=== PATIENT | female | born 1975 | race Caucasian/White ===

== ENCOUNTER → 2017-08-09 | Outpatient (CLI) | payer BC | END | disposition home or self-care (01) | LOC: EPLAB 09:50 | PROVIDERS: ATTEND Internal Medicine | DX: C52 Malignant neoplasm of vagina (principal) | CPT/HCPCS: 86850; 86900; 86901; 86920 ==

== ENCOUNTER 2017-08-11 06:12 | Inpatient (IN) | payer BC ==
[2017-08-11] VITALS (37 sets, daily range): BP systolic 75–120; BP diastolic 43–71; PULSE 66–94; RESP 9–24; Ht 154.9 cm; Wt 61.6 kg
[~2017-08-11] VITALS: Ht 154.9 cm; Wt 61.6 kg
[~2017-08-11 06:12] MED LIST: CEFAZOLIN 2 GM/50 ML (PMX) 50 ML IVPB SCH; D5-NS + KCL 20 MEQ 1,000 ML IV SCH; Metronidazole 500 MG in NS 100 ML IVPB SCH
[2017-08-11] MEDS ORDERED: THROMBIN 5000 UNIT VIAL ONE (06:56)
[2017-08-11] MEDS ORDERED: METHYLENE BLUE 1% 10 ML INJ ONE (06:57)
[2017-08-11] MEDS ORDERED: MIDAZOLAM 1 MG/ML 2 ML INJ ONE (07:42)
[2017-08-11] MEDS ORDERED: morphine SULFATE/PF (10 MG/10 ML) INJ ONE (07:42)
--- NOTE | 2017-08-11 07:50 | HPN ---
Date/Time of Note Date/Time of Note DATE: 08/11/17 TIME: 07:49 Interval H&P Admission Note Pt. seen H&P reviewed: No system changes DELMA LUNDBERG MD Aug 11, 2017 07:50
[2017-08-11] MEDS ORDERED: PHENYLephrine (100 MCG/ML) 5ML SYG ONE (08:12)
[2017-08-11] MEDS ORDERED: FENTAnyl 50 MCG/ML VIAL ONE ×2 (09:12→11:44)
[2017-08-11] MEDS ORDERED: PROPOFOL 40 ML ONE (10:56)
[2017-08-11] MEDS ORDERED: LIDOCAINE 2% (SDV) 5 ML INJ ONE (10:56)
[2017-08-11] MEDS ORDERED: SUCCINYLCHOLINE CHLORIDE 100 MG/5 ML SYG IV ONE (10:56)
[2017-08-11] MEDS ORDERED: SUGAMMADEX SODIUM 200 MG/2 ML VIAL IV ONE (10:56)
[2017-08-11] MEDS ORDERED: ROCURONIUM 50 MG INJ ONE (10:56)
[2017-08-11] MEDS ORDERED: DIPHENHYDRAMINE 50 MG INJ IV PRN (12:00)
[2017-08-11] MEDS ORDERED: morphine 2 MG INJ IV PRN (12:00)
[2017-08-11] MEDS ORDERED: OXYCODONE/ACETAMINOPHEN (5/325) TAB PO PRN (12:00)
[2017-08-11] MEDS ORDERED: DIPHENHYDRAMINE 25 MG CAP PO PRN (12:00)
[2017-08-11] MEDS ORDERED: CEFAZOLIN 1 GM in SOD CHLORIDE 0.9% 100 ML IVPB SCH (12:00)
[2017-08-11] MEDS ORDERED: ONDANSETRON 4 MG INJ IV PRN ×2 (12:00→16:30)
[2017-08-11] MEDS ORDERED: ALBUTEROL 0.083% (NEB) 2.5 MG/3 ML AMP HHN PRN (12:00)
[2017-08-11] MEDS ORDERED: FENTAnyl 50 MCG/ML VIAL IV PRN ×3 (12:00)
[2017-08-11] MEDS ORDERED: MEPERIDINE 25 MG INJ IV PRN (12:00)
[2017-08-11] MEDS ORDERED: HYDROmorphONE (0.2 MG/ML) 10ML SYG IV PRN ×2 (12:00)
[2017-08-11] MEDS ORDERED: METOCLOPRAMIDE 10 MG INJ IV PRN (12:00)
[2017-08-11] MEDS: HYDROmorphONE (0.2 MG/ML) 10ML SYG IV PRN ×3 (12:11→12:37)
--- NOTE | 2017-08-11 12:18 | OPPN ---
Date/Time of Note Date/Time of Note DATE: 08/11/17 TIME: 11:57 Operative Report Preoperative Diagnosis cervical cancer st II Postoperative Diagnosis same with pelvic adhesions ureteral stricture and probable endometriosis Operation/Procedure Performed Pelvic and aortic LND, extensive enterolysis, left ureteral dissection, repair left common iliac / hypogastric vein Anesthesia Type: other Estimated blood loss: other Transfusion Required: yes Specimens multiple Grafts/Implants: none Complications: no DELMA LUNDBERG MD Aug 11, 2017 12:16
[2017-08-11 12:50] LABS: BASOPHIL # 0.1 10^3/ul (0.0-0.1); BASOPHILS % 0.2 % (0.0-2.0); HEMATOCRIT 34.4 % (37.0-47.0); HEMOGLOBIN 11.2 g/dl (12.0-16.0); LYMPHOCYTES # 1.5 10^3/ul (0.8-2.9); LYMPHOCYTES % 6.7 % (15.0-51.0); MEAN CORPUSCULAR HEMOGLOBIN 28.5 pg (29.0-33.0); MEAN CORPUSCULAR HGB CONC 32.6 g/dl (32.0-37.0); MEAN CORPUSCULAR VOLUME 87.5 fl (82.0-101.0); MEAN PLATELET VOLUME 10.3 fl (7.4-10.4); MONOCYTE # 1.1 10^3/ul (0.3-0.9); MONOCYTES % 4.8 % (0.0-11.0); NEUTROPHILS % 87.4 % (39.0-77.0); PLATELET COUNT 255 10^3/UL (140-415); RED BLOOD COUNT 3.93 10^6/ul (4.20-5.40); RED CELL DISTRIBUTION WIDTH 13.1 % (11.5-14.5); WHITE BLOOD COUNT 22.6 10^3/ul (4.8-10.8)
[2017-08-11] MEDS ORDERED: POTASSIUM CHLORIDE 20 MEQ in LACTATED RINGER'S 1,000 ML IV SCH (13:00)
[2017-08-11 13:11] LABS: CALCIUM 7.2 mg/dl (8.4-10.2); CREATININE 0.58 mg/dl (0.44-1.00); POTASSIUM 3.6 mmol/L (3.5-5.1)
[2017-08-11] MEDS: CEFAZOLIN 1 GM/50 ML (PMX) 50 ML IVPB SCH ×2 (13:51→21:28)
[2017-08-11] MEDS: metroNIDAZOLE 500 MG/NS (PMX) 100 ML IVPB SCH ×2 (14:33→21:28)
[2017-08-11] MEDS: POTASSIUM CHLORIDE 20 MEQ in LACTATED RINGER'S 1,000 ML IV SCH (15:39)
[2017-08-11 16:38] LABS: INR 1.07; PROTIME 13.9 Sec (12.2-14.2); PT RATIO 1.1
[2017-08-11] MEDS ORDERED: ACETAMINOPHEN 1000MG/100ML IV 100 ML IVPB PRN (18:00)
[2017-08-11] MEDS: morphine 2 MG INJ IV PRN ×2 (18:08→23:48)
--- NOTE | 2017-08-11 20:32 | PN ---
Date/Time of Note Date/Time of Note DATE: 08/11/17 TIME: 20:32 Assessment/Plan Lines/Catheters IV Catheter Type (from Nrsg): Peripheral IV Urinary Cath still in place: Yes Exam/Review of Systems Vital Signs Vitals Vital Signs Date Time Temp Pulse Resp B/P Pulse Ox O2 Delivery O2 Flow Rate FiO2 08/11/17 19:00 84 12 93/52 98 08/11/17 16:00 97.6 08/11/17 12:38 Nasal Cannula 2.0 Results Result Diagram: 08/11/17 1232 08/11/17 1232 Results 24 hrs Laboratory Tests Test 08/11/17 12:32 08/11/17 16:05 White Blood Count 22.6 H Red Blood Count 3.93 L Hemoglobin 11.2 L Hematocrit 34.4 L Mean Corpuscular Volume 87.5 Mean Corpuscular Hemoglobin 28.5 L Mean Corpuscular Hemoglobin Concent 32.6 Red Cell Distribution Width 13.1 Platelet Count 255 Mean Platelet Volume 10.3 Neutrophils % 87.4 H Lymphocytes % 6.7 L Monocytes % 4.8 Eosinophils % 0.0 Basophils % 0.2 Nucleated Red Blood Cells % 0.0 Neutrophils # (Manual) 19.8 H Lymphocytes # 1.5 Monocytes # 1.1 H Eosinophils # 0.0 Basophils # 0.1 Nucleated Red Blood Cells # 0.0 CBC Results Faxed/Phoned Sodium Level 135 Potassium Level 3.6 Chloride Level 111 H Carbon Dioxide Level 23 Anion Gap 5 L Blood Urea Nitrogen 6 L Creatinine 0.58 Glucose Level 127 Calcium Level 7.2 L Prothrombin Time 13.9 Prothrombin Time Ratio 1.1 INR International Normalized Ratio 1.07 Medications Medications Current Medications Metronidazole (Flagyl 500 Mg (Pmx)) 100 ml @ 100 mls/hr Q8 IVPB Last administered on 08/11/17t 14:33; Admin Dose 100 MLS/HR; Start 08/11/17 at 14:00 Acetaminophen/ Hydrocodone Bitart ([place] (5/325)) 1 tab Q6H PRN PO PAIN LEVEL 6 -10; Start 08/11/17 at 12:00 Diphenhydramine HCl (Benadryl) 25 mg Q6H PRN PO ITCHING; Start 08/11/17 at 12: 00 Famotidine (Pepcid Iv) 20 mg Q12 IV ; Start 08/11/17 at 21:00 Enoxaparin Sodium 40 mg 40 mg DAILY@07 SC ; Start 08/12/17 at 07:00 Cefazolin Sodium 50 ml @ 100 mls/hr Q8 IVPB Last administered on 08/11/17 13: 51; Admin Dose 100 MLS/HR; Start 08/11/17 at 14:00; Stop 08/12/17 at 06:29 Potassium Chloride/Lactated Ringer's (KCl/Lr) 1,010 ml @ 125 mls/hr Q8H5M IV Last administered on 08/11/17 15:39; Admin Dose 100 MLS/HR; Start 08/11/17 at 15:30 Ondansetron HCl 4 mg 4 mg Q6H PRN IV NAUSEA AND/OR VOMITING Last administered on 08/11/17 16:15; Admin Dose 4 MG; Start 08/11/17 at 16:30 Acetaminophen (Ofirmev 1000mg/ 100ml Iv) 100 ml @ 400 mls/hr Q6H PRN IVPB PAIN LEVEL 1-3; Start 08/11/17 at 18:00 Morphine Sulfate (morphine) 2 mg Q2H PRN IV PAIN LEVEL 7-10 Last administered on 08/11/17 18:08; Admin Dose 2 MG; Start 08/11/17 at 18:00 SUNDAR NICHOLE Aug 11, 2017 20:32
--- NOTE | 2017-08-11 20:45 | HP ---
DATE OF ADMISSION: 08/11/2017 CHIEF COMPLAINT AND HISTORY OF PRESENT ILLNESS: Patient is a 41- year-old female with history of vaginal bleed and biopsy proven squamous cell cancer. CT of the abdomen and pelvis apparently had no metastatic disease. Patient was seen by Dr. Johns as an outpatient, and was referred to him by Dr. 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 Patient was brought into hospital today and was taken to OR. Patient underwent pelvic and aortic lymph node dissection, extensive enterolysis, left ureter dissection and repair of left common iliac and hypogastric vein. During surgery, patient was noted to have pelvic adhesions, ureteral stricture, and probable endometriosis. Patient is being admitted in ICU for close monitoring. Patient denies any chest pain and is breathing comfortably. Patient's vital signs have remained stable since surgery. Denies any chest pain, no shortness of breath. No leg pain or leg edema. No numbness, tingling in any extremity. Patient remains awake and responsive. Other than postoperative pain, rest of review of systems unremarkable. PAST SURGICAL HISTORY: None. ALLERGIES: NONE. SOCIAL HISTORY: No smoking. No alcohol. FAMILY HISTORY: Noncontributory. PHYSICAL EXAMINATION: GENERAL: Patient conscious, awake, alert. VITAL SIGNS: Temperature 97.6, pulse 80, respiration 20, blood pressure 101/58, O2 sat 100% on room air. HEENT: No eye discharge, redness. Extraocular movement intact. Oropharynx clear. NECK: No mass. CHEST: Fairly clear. CVS: S1, S2 normal. No murmur. ABDOMEN: Patient is status post surgery. EXTREMITIES: No leg edema. Pedal pulses palpable. SKIN: Without acute rash. NEUROLOGIC: Patient is awake, alert, follows simple commands. LABORATORY DATA: Urine test negative. Preop lab reveals sodium 141, potassium 4.2, BUN 8, creatinine 0.7. Liver enzymes normal. PTT 28. WBC 7.8, hemoglobin 13.2, INR 1, PTT 10.8. Postoperatively, patient's CBC revealed WBC 22.6, hemoglobin 9.2. Sodium 135, potassium 3.6, BUN 6, creatinine 0.5. IMPRESSION: 1. Cervical cancer stage II with pelvic adhesion, ureteral stricture and probable endometriosis, status post pelvic and aortic lymph node dissection, extensive enterolysis, left ureteral dissection, repair of left common iliac/hypogastric vein. PLAN: Patient admitted in ICU, will be started on clear liquid diet and IV fluids. Postop IV antibiotic as per protocol. Patient will be also started on IV Tylenol and [place] for pain control. Patient will also receive Lovenox for DVT prophylaxis. Patient will have followup labs in the morning. Further recommendation depending on hospital course, and recommendations of Dr. Johns. Dictated By: Troy Cm MD /beau/jonelle /Document#: [id number] EARNEST
[2017-08-11] MEDS: FAMOTIDINE 20 MG INJ IV SCH (21:25)
[2017-08-12] VITALS (41 sets, daily range): BP systolic 84–107; BP diastolic 48–72; PULSE 81–108; RESP 15–22
[2017-08-12] MEDS: POTASSIUM CHLORIDE 20 MEQ in LACTATED RINGER'S 1,000 ML IV SCH ×3 (03:09→14:08)
[2017-08-12] MEDS: CEFAZOLIN 1 GM/50 ML (PMX) 50 ML IVPB SCH (05:37)
[2017-08-12] MEDS: metroNIDAZOLE 500 MG/NS (PMX) 100 ML IVPB SCH ×3 (05:38→21:04)
[2017-08-12 05:53] LABS: BASOPHILS % 0.4 % (0.0-2.0); EOSINOPHILS # 0.1 10^3/ul (0.0-0.5); EOSINOPHILS % 0.6 % (0.0-7.0); HEMATOCRIT 31.9 % (37.0-47.0); HEMOGLOBIN 10.4 g/dl (12.0-16.0); LYMPHOCYTES # 1.4 10^3/ul (0.8-2.9); LYMPHOCYTES % 13.6 % (15.0-51.0); MEAN CORPUSCULAR HEMOGLOBIN 27.8 pg (29.0-33.0); MEAN CORPUSCULAR HGB CONC 32.6 g/dl (32.0-37.0); MEAN CORPUSCULAR VOLUME 85.3 fl (82.0-101.0); MEAN PLATELET VOLUME 10.4 fl (7.4-10.4); MONOCYTE # 0.8 10^3/ul (0.3-0.9); MONOCYTES % 7.6 % (0.0-11.0); NEUTROPHILS % 77.1 % (39.0-77.0); PLATELET COUNT 197 10^3/UL (140-415); RED BLOOD COUNT 3.74 10^6/ul (4.20-5.40); RED CELL DISTRIBUTION WIDTH 13.5 % (11.5-14.5); WHITE BLOOD COUNT 10.5 10^3/ul (4.8-10.8)
[2017-08-12 06:05] LABS: INR 1.23; PROTIME 15.6 Sec (12.2-14.2); PT RATIO 1.2
[2017-08-12] MEDS: morphine 2 MG INJ IV PRN ×3 (06:23→22:37)
[2017-08-12] MEDS: ENOXAPARIN 40 MG/0.4 ML SYG SC SCH (06:24)
[2017-08-12 06:27] LABS: ALBUMIN 2.7 g/dl (3.3-4.9); BILIRUBIN,INDIRECT 0.8 mg/dl (0-1.1); BILIRUBIN,TOTAL 0.8 mg/dl (0.2-1.3); CREATININE 0.64 mg/dl (0.44-1.00); TOTAL PROTEIN 5.4 g/dl (6.1-8.1)
[2017-08-12] MEDS: FAMOTIDINE 20 MG INJ IV SCH (08:05)
--- NOTE | 2017-08-12 13:08 | PN ---
Date/Time of Note Date/Time of Note DATE: 08/12/17 TIME: 13:05 Assessment/Plan VTE Prophylaxis VTE Prophylaxis Intervention: SCD's Lines/Catheters IV Catheter Type (from Nrs): A Line Urinary Cath still in place: Yes Reason Cath still needed: urinary retention Assessment/Plan Chief Complaint/Hosp Course vaginal cancer Problems: Assessment/Plan A- doing adequately P- transfer to 4w Subjective 24 Hr Interval Summary Free Text/Dictation some abd discomfort but no other discomfort and not OOB Exam/Review of Systems Vital Signs Vitals Vital Signs Date Time Temp Pulse Resp B/P Pulse Ox O2 Delivery O2 Flow Rate FiO2 08/12/17 12:00 95 08/12/17 12:00 98.1 21 94/64 98 Room Air 08/11/17 12:38 2.0 Intake and Output 08/11/17 08/11/17 08/12/17 15:00 23:00 07:00 Intake Total 2500 ml 1020 ml 910 ml Output Total 1375 ml 1100 ml 1110 ml Balance 1125 ml -80 ml -200 ml Exam Resp- clear CVS- NSR Abd- soft, minimally tender and clean Ext- NT no edema and warm with pulse bilateral Results Result Diagram: 08/12/17 0530 08/12/17 0530 Results 24 hrs Laboratory Tests Test 08/11/17 16:05 08/12/17 05:30 08/12/17 05:36 Prothrombin Time 13.9 15.6 H Prothrombin Time Ratio 1.1 1.2 INR International Normalized Ratio 1.07 1.23 White Blood Count 10.5 # Red Blood Count 3.74 L Hemoglobin 10.4 L Hematocrit 31.9 L Mean Corpuscular Volume 85.3 Mean Corpuscular Hemoglobin 27.8 L Mean Corpuscular Hemoglobin Concent 32.6 Red Cell Distribution Width 13.5 Platelet Count 197 # Mean Platelet Volume 10.4 Neutrophils % 77.1 H Lymphocytes % 13.6 L Monocytes % 7.6 Eosinophils % 0.6 Basophils % 0.4 Nucleated Red Blood Cells % 0.0 Neutrophils # (Manual) 8.1 H Lymphocytes # 1.4 Monocytes # 0.8 Eosinophils # 0.1 Basophils # 0.0 Nucleated Red Blood Cells # 0.0 Sodium Level 137 Potassium Level 4.0 Chloride Level 108 Carbon Dioxide Level 26 Anion Gap 7 L Blood Urea Nitrogen 5 L Creatinine 0.64 Glucose Level 96 Calcium Level 8.0 L Total Bilirubin 0.8 Direct Bilirubin 0.00 Indirect Bilirubin 0.8 Aspartate Amino Transf (AST/SGOT) 17 Alanine Aminotransferase (ALT/SGPT) 26 Alkaline Phosphatase 43 Total Protein 5.4 L Albumin 2.7 L Globulin 2.70 Albumin/Globulin Ratio 1.00 Lab Scanned Report REFERENCE LAB Medications Medications Current Medications Metronidazole (Flagyl 500 Mg (Pmx)) 100 ml @ 100 mls/hr Q8 IVPB Last administered on 08/12/17 05:38; Admin Dose 100 MLS/HR; Start 08/11/17 at 14:00 Acetaminophen/ Hydrocodone Bitart ([place] (5/325)) 1 tab Q6H PRN PO PAIN LEVEL 6 -10; Start 08/11/17 at 12:00 Diphenhydramine HCl (Benadryl) 25 mg Q6H PRN PO ITCHING; Start 08/11/17 at 12: 00 Enoxaparin Sodium 40 mg 40 mg DAILY@07 SC Last administered on 08/12/17 06:24 ; Admin Dose 40 MG; Start 08/12/17 at 07:00 Potassium Chloride/Lactated Ringer's (KCl/Lr) 1,010 ml @ 125 mls/hr Q8H5M IV Last administered on 08/12/17 03:09; Admin Dose 125 MLS/HR; Start 08/11/17 at 15:30 Ondansetron HCl 4 mg 4 mg Q6H PRN IV NAUSEA AND/OR VOMITING Last administered on 08/11/17 16:15; Admin Dose 4 MG; Start 08/11/17 at 16:30 Acetaminophen (Ofirmev 1000mg/ 100ml Iv) 100 ml @ 400 mls/hr Q6H PRN IVPB PAIN LEVEL 1-3; Start 08/11/17 at 18:00 Morphine Sulfate (morphine) 2 mg Q2H PRN IV PAIN LEVEL 7-10 Last administered on 08/12/17 06:23; Admin Dose 2 MG; Start 08/11/17 at 18:00 Famotidine (Pepcid) 20 mg Q12 PO ; Start 08/12/17 at 21:00 DELMA LUNDBERG MD Aug 12, 2017 13:08
[2017-08-12] MEDS: FAMOTIDINE 20 MG TAB PO SCH (20:56)
[2017-08-13] VITALS (19 sets, daily range): BP systolic 92–114; BP diastolic 52–68; PULSE 79–97; RESP 14–20
[2017-08-13] MEDS: HYDROCODONE/APAP (5/325) TAB PO PRN ×2 (02:15→20:34)
[2017-08-13 05:50] LABS: BASOPHIL # 0.1 10^3/ul (0.0-0.1); BASOPHILS % 0.7 % (0.0-2.0); EOSINOPHILS # 0.1 10^3/ul (0.0-0.5); HEMATOCRIT 31.3 % (37.0-47.0); HEMOGLOBIN 10.4 g/dl (12.0-16.0); LYMPHOCYTES # 1.6 10^3/ul (0.8-2.9); LYMPHOCYTES % 20.2 % (15.0-51.0); MEAN CORPUSCULAR HGB CONC 33.2 g/dl (32.0-37.0); MEAN CORPUSCULAR VOLUME 87.2 fl (82.0-101.0); MEAN PLATELET VOLUME 10.6 fl (7.4-10.4); MONOCYTE # 0.8 10^3/ul (0.3-0.9); MONOCYTES % 9.8 % (0.0-11.0); NEUTROPHIL # 5.4 10^3/ul (1.6-7.5); NEUTROPHILS % 67.7 % (39.0-77.0); PLATELET COUNT 181 10^3/UL (140-415); RED BLOOD COUNT 3.59 10^6/ul (4.20-5.40); RED CELL DISTRIBUTION WIDTH 13.3 % (11.5-14.5); WHITE BLOOD COUNT 8.1 10^3/ul (4.8-10.8)
[2017-08-13] MEDS: POTASSIUM CHLORIDE 20 MEQ in LACTATED RINGER'S 1,000 ML IV SCH ×3 (06:17→22:11)
[2017-08-13] MEDS: metroNIDAZOLE 500 MG/NS (PMX) 100 ML IVPB SCH (06:18)
[2017-08-13] MEDS: ENOXAPARIN 40 MG/0.4 ML SYG SC SCH (06:21)
[2017-08-13 06:46] LABS: CALCIUM 8.1 mg/dl (8.4-10.2); CREATININE 0.59 mg/dl (0.44-1.00); POTASSIUM 3.7 mmol/L (3.5-5.1)
[2017-08-13] MEDS: FAMOTIDINE 20 MG TAB PO SCH ×2 (09:33→22:02)
[2017-08-13] MEDS: metroNIDAZOLE 500 MG TAB PO SCH ×2 (13:17→22:01)
--- NOTE | 2017-08-13 15:57 | PN ---
Date/Time of Note Date/Time of Note DATE: 08/13/17 TIME: 15:47 Assessment/Plan VTE Prophylaxis VTE Prophylaxis Intervention: SCD's Lines/Catheters IV Catheter Type (from Nrsg): [place] Urinary Cath still in place: Yes Assessment/Plan Assessment/Plan 1. Cervical cancer stage II with pelvic adhesion, uretera stricture and probable endometriosis, status post pelvic and aortic lymph node dissection, extensive enterolysis, left ureteral dissection, repair of left common iliac/hypogastric vein. - clear liquid diet and IV fluids. - Po antibiotic as per protocol. - Tylenol and [place] for pain control. Lovenox for DVT prophylaxis. Further recommendation depending on hospital course, and recommendations of Dr. Johns.- Dw Dr Cm Subjective 24 Hr Interval Summary Free Text/Dictation Denies any vaginal bleeding, at bed side- all Qs answered. dw staff Respiratory: no complaints Cardiovascular: no complaints Gastrointestinal: no complaints Genitourinary: no complaints Musculoskeletal: no complaints Skin: no complaints Neurologic: no complaints Exam/Review of Systems Vital Signs Vitals Vital Signs Date Time Temp Pulse Resp B/P Pulse Ox O2 Delivery O2 Flow Rate FiO2 08/13/17 15:32 97.7 82 18 114/60 97 08/13/17 06:00 Room Air 08/11/17 12:38 2.0 Intake and Output 08/12/17 08/12/17 08/13/17 15:00 23:00 07:00 Intake Total 1630 ml 1240 ml 950 ml Output Total 1485 ml 1135 ml 645 ml Balance 145 ml 105 ml 305 ml Exam Constitutional: alert, oriented Respiratory: clear to auscultation, normal air movement Cardiovascular: nl pulses, regular rate and rhythm Gastrointestinal: non-tender, soft Musculoskeletal: nl extremities to inspection Extremities: normal pulses Neurological: nl mental status, nl speech Results Result Diagram: 08/13/1717 08/13/1717 Results 24 hrs Laboratory Tests Test 08/13/17 05:17 White Blood Count 8.1 # Red Blood Count 3.59 L Hemoglobin 10.4 L Hematocrit 31.3 L Mean Corpuscular Volume 87.2 Mean Corpuscular Hemoglobin 29.0 Mean Corpuscular Hemoglobin Concent 33.2 Red Cell Distribution Width 13.3 Platelet Count 181 Mean Platelet Volume 10.6 H Neutrophils % 67.7 Lymphocytes % 20.2 Monocytes % 9.8 Eosinophils % 1.0 Basophils % 0.7 Nucleated Red Blood Cells % 0.0 Neutrophils # 5.4 Lymphocytes # 1.6 Monocytes # 0.8 Eosinophils # 0.1 Basophils # 0.1 Nucleated Red Blood Cells # 0.0 Sodium Level 136 Potassium Level 3.7 Chloride Level 108 Carbon Dioxide Level 26 Anion Gap 6 L Blood Urea Nitrogen 4 L Creatinine 0.59 Glucose Level 92 Calcium Level 8.1 L Medications Medications Current Medications Acetaminophen/ Hydrocodone Bitart ([place] (5/325)) 1 tab Q6H PRN PO PAIN LEVEL 6 -10 Last administered on 08/13/17 02:15; Admin Dose 1 TAB; Start 08/11/17 at 12 :00 Diphenhydramine HCl (Benadryl) 25 mg Q6H PRN PO ITCHING; Start 08/11/17 at 12: 00 Enoxaparin Sodium 40 mg 40 mg DAILY@07 SC Last administered on 08/13/17 06:21 ; Admin Dose 40 MG; Start 08/12/17 at 07:00 Potassium Chloride/Lactated Ringer's (KCl/Lr) 1,010 ml @ 80 mls/hr [id number] IV Last administered on 08/13/17 06:17; Admin Dose 80 MLS/HR; Start 08/11/17 at 15 :30 Ondansetron HCl 4 mg 4 mg Q6H PRN IV NAUSEA AND/OR VOMITING Last administered on 08/11/17 16:15; Admin Dose 4 MG; Start 08/11/17 at 16:30 Acetaminophen (Ofirmev 1000mg/ 100ml Iv) 100 ml @ 400 mls/hr Q6H PRN IVPB PAIN LEVEL 1-3; Start 08/11/17 at 18:00 Morphine Sulfate (morphine) 2 mg Q2H PRN IV PAIN LEVEL 7-10 Last administered on 08/12/17 22:37; Admin Dose 2 MG; Start 08/11/17 at 18:00 Famotidine (Pepcid) 20 mg Q12 PO Last administered on 08/13/17 09:33; Admin Dose 20 MG; Start 08/12/17 at 21:00 Simethicone (Mylicon) 80 mg Q8H PRN PO DISTENSION/GAS/BLOATING Last administered on 08/12/17 18:03; Admin Dose 80 MG; Start 08/12/17 at 17:00 Metronidazole (Flagyl) 500 mg TID PO Last administered on 08/13/17 13:17; Admin Dose 500 MG; Start 08/13/17 at 13:00 SUNDAR NICHOLE Aug 13, 2017 15:57
[2017-08-14 01:58] VITALS: BP 100/55; RESP 18
[2017-08-14 06:04] LABS: BASOPHIL # 0.1 10^3/ul (0.0-0.1); BASOPHILS % 0.8 % (0.0-2.0); EOSINOPHILS # 0.1 10^3/ul (0.0-0.5); EOSINOPHILS % 1.5 % (0.0-7.0); HEMATOCRIT 35.1 % (37.0-47.0); HEMOGLOBIN 11.5 g/dl (12.0-16.0); LYMPHOCYTES # 1.6 10^3/ul (0.8-2.9); LYMPHOCYTES % 19.7 % (15.0-51.0); MEAN CORPUSCULAR HEMOGLOBIN 28.8 pg (29.0-33.0); MEAN CORPUSCULAR HGB CONC 32.8 g/dl (32.0-37.0); MEAN CORPUSCULAR VOLUME 87.8 fl (82.0-101.0); MEAN PLATELET VOLUME 10.5 fl (7.4-10.4); MONOCYTE # 0.7 10^3/ul (0.3-0.9); MONOCYTES % 9.3 % (0.0-11.0); NEUTROPHIL # 5.3 10^3/ul (1.6-7.5); NEUTROPHILS % 67.8 % (39.0-77.0); PLATELET COUNT 226 10^3/UL (140-415); RED CELL DISTRIBUTION WIDTH 13.4 % (11.5-14.5); WHITE BLOOD COUNT 7.9 10^3/ul (4.8-10.8)
[2017-08-14 06:28] LABS: CALCIUM 8.7 mg/dl (8.4-10.2); CREATININE 0.58 mg/dl (0.44-1.00); POTASSIUM 3.8 mmol/L (3.5-5.1)
[2017-08-14 07:00] VITALS: BP 105/64; RESP 18
[2017-08-14] MEDS: ENOXAPARIN 40 MG/0.4 ML SYG SC SCH (07:21)
[2017-08-14] MEDS: FAMOTIDINE 20 MG TAB PO SCH ×2 (08:51→21:15)
[2017-08-14] MEDS: metroNIDAZOLE 500 MG TAB PO SCH ×3 (08:51→21:15)
[2017-08-14] MEDS: POTASSIUM CHLORIDE 20 MEQ in LACTATED RINGER'S 1,000 ML IV SCH ×2 (11:53→23:53)
[2017-08-14 14:00] VITALS: BP 105/59; RESP 18
--- NOTE | 2017-08-14 16:22 | PN ---
Date/Time of Note Date/Time of Note DATE: 08/14/17 TIME: 16:20 Assessment/Plan VTE Prophylaxis VTE Prophylaxis Intervention: LMWH Lines/Catheters IV Catheter Type (from Nrs): Saline Lock Urinary Cath still in place: No Assessment/Plan Assessment/Plan 1. Cervical cancer stage II with pelvic adhesion, uretera stricture and probable endometriosis, status post pelvic and aortic lymph node dissection, extensive enterolysis, left ureteral dissection, repair of left common iliac/hypogastric vein. - clear liquid diet and IV fluids. - Po antibiotic as per protocol. - Tylenol and [place] for pain control. 2. BLE venous doppler stat - Possible iliac vein injury during sx Lovenox for DVT prophylaxis. Further recommendation depending on hospital course, and recommendations of Dr. Johns.- Dw Dr Cm Subjective 24 Hr Interval Summary Respiratory: no complaints Cardiovascular: no complaints Gastrointestinal: no complaints Genitourinary: no complaints Musculoskeletal: no complaints Skin: no complaints Exam/Review of Systems Vital Signs Vitals Vital Signs Date Time Temp Pulse Resp B/P Pulse Ox O2 Delivery O2 Flow Rate FiO2 08/14/17 14:00 98.6 87 18 105/59 96 08/13/17 15:53 Room Air 08/11/17 12:38 2.0 Intake and Output 08/13/17 08/13/17 08/14/17 15:00 23:00 07:00 Intake Total 1490 ml 780 ml Output Total 2000 ml 800 ml Balance -510 ml -20 ml Exam Constitutional: alert, oriented, well developed Respiratory: clear to auscultation, normal air movement Cardiovascular: nl pulses, regular rate and rhythm Gastrointestinal: non-tender Musculoskeletal: nl extremities to inspection Extremities: normal pulses Neurological: nl mental status, nl speech Results Result Diagram: 08/14/17 0500 08/14/17 0500 Results 24 hrs Laboratory Tests Test 08/14/17 05:00 White Blood Count 7.9 Red Blood Count 4.00 L Hemoglobin 11.5 L Hematocrit 35.1 L Mean Corpuscular Volume 87.8 Mean Corpuscular Hemoglobin 28.8 L Mean Corpuscular Hemoglobin Concent 32.8 Red Cell Distribution Width 13.4 Platelet Count 226 # Mean Platelet Volume 10.5 H Neutrophils % 67.8 Lymphocytes % 19.7 Monocytes % 9.3 Eosinophils % 1.5 Basophils % 0.8 Nucleated Red Blood Cells % 0.0 Neutrophils # 5.3 Lymphocytes # 1.6 Monocytes # 0.7 Eosinophils # 0.1 Basophils # 0.1 Nucleated Red Blood Cells # 0.0 Sodium Level 139 Potassium Level 3.8 Chloride Level 107 Carbon Dioxide Level 27 Anion Gap 9 Blood Urea Nitrogen 4 L Creatinine 0.58 Glucose Level 92 Calcium Level 8.7 Medications Medications Current Medications Acetaminophen/ Hydrocodone Bitart ([place] (5/325)) 1 tab Q6H PRN PO PAIN LEVEL 6 -10 Last administered on 08/13/17 20:34; Admin Dose 1 TAB; Start 08/11/17 at 12 :00 Diphenhydramine HCl (Benadryl) 25 mg Q6H PRN PO ITCHING; Start 08/11/17 at 12: 00 Enoxaparin Sodium 40 mg 40 mg DAILY@07 SC Last administered on 08/14/17 07:21 ; Admin Dose 40 MG; Start 08/12/17 at 07:00 Potassium Chloride/Lactated Ringer's (KCl/Lr) 1,010 ml @ 80 mls/hr [id number] IV Last administered on 08/14/17 11:53; Admin Dose 80 MLS/HR; Start 08/11/17 at 15 :30 Ondansetron HCl 4 mg 4 mg Q6H PRN IV NAUSEA AND/OR VOMITING Last administered on 08/11/17 16:15; Admin Dose 4 MG; Start 08/11/17 at 16:30 Acetaminophen (Ofirmev 1000mg/ 100ml Iv) 100 ml @ 400 mls/hr Q6H PRN IVPB PAIN LEVEL 1-3; Start 08/11/17 at 18:00 Morphine Sulfate (morphine) 2 mg Q2H PRN IV PAIN LEVEL 7-10 Last administered on 08/12/17 22:37; Admin Dose 2 MG; Start 08/11/17 at 18:00 Famotidine (Pepcid) 20 mg Q12 PO Last administered on 08/14/17 08:51; Admin Dose 20 MG; Start 08/12/17 at 21:00 Simethicone (Mylicon) 80 mg Q8H PRN PO DISTENSION/GAS/BLOATING Last administered on 08/14/17 11:58; Admin Dose 80 MG; Start 08/12/17 at 17:00 Metronidazole (Flagyl) 500 mg TID PO Last administered on 08/14/17t 12:40; Admin Dose 500 MG; Start 08/13/17 at 13:00 SUNDAR NICHOLE Aug 14, 2017 16:22
--- NOTE | 2017-08-14 17:10 | RADRPT ---
PROCEDURE: US bilateral lower extremity veins. CLINICAL INDICATION: Bilateral leg pain and swelling. TECHNIQUE: Multiple longitudinal and transverse images of the bilateral lower extremity veins were obtained with bass scale and color Doppler imaging. The common femoral vein, femoral vein, and popl iteal vein were evaluated. 2D grayscale measurements with compression sonography, color Doppler, and pulsed Doppler with augmentation. COMPARISON: No prior studies are available for comparison. FINDINGS: The bilateral common femoral, femoral and popliteal veins are normally compressible throughout. Col or flow demonstrates normal filling of the vessels. Normal waveforms are visualized and there is no rmal response to augmentation. IMPRESSION: 1. No evidence of deep vein thrombosis involving either lower extremity. RPTAT: QQ .Felipe Foster MD, MD Date Time Electronically viewed and signed by .Felipe Foster MD, on 08/14/2017 17:10 .R/
[2017-08-14 20:06] VITALS: BP 104/62; RESP 20
[2017-08-14] MEDS: morphine 2 MG INJ IV PRN (23:51)
[2017-08-15 02:41] VITALS: BP 105/60; RESP 20
[2017-08-15 06:24] LABS: BASOPHILS % 0.5 % (0.0-2.0); EOSINOPHILS # 0.2 10^3/ul (0.0-0.5); EOSINOPHILS % 2.6 % (0.0-7.0); HEMATOCRIT 32.3 % (37.0-47.0); HEMOGLOBIN 10.5 g/dl (12.0-16.0); LYMPHOCYTES # 1.3 10^3/ul (0.8-2.9); LYMPHOCYTES % 18.8 % (15.0-51.0); MEAN CORPUSCULAR HEMOGLOBIN 28.3 pg (29.0-33.0); MEAN CORPUSCULAR HGB CONC 32.5 g/dl (32.0-37.0); MEAN CORPUSCULAR VOLUME 87.1 fl (82.0-101.0); MEAN PLATELET VOLUME 10.6 fl (7.4-10.4); MONOCYTE # 0.6 10^3/ul (0.3-0.9); MONOCYTES % 9.6 % (0.0-11.0); NEUTROPHIL # 4.5 10^3/ul (1.6-7.5); NEUTROPHILS % 66.8 % (39.0-77.0); PLATELET COUNT 222 10^3/UL (140-415); RED BLOOD COUNT 3.71 10^6/ul (4.20-5.40); RED CELL DISTRIBUTION WIDTH 13.7 % (11.5-14.5); WHITE BLOOD COUNT 6.7 10^3/ul (4.8-10.8)
[2017-08-15 06:40] LABS: CALCIUM 8.6 mg/dl (8.4-10.2); CREATININE 0.6 mg/dl (0.44-1.00); POTASSIUM 3.8 mmol/L (3.5-5.1)
[2017-08-15 07:00] VITALS: BP 104/58; RESP 18
[2017-08-15] MEDS: ENOXAPARIN 40 MG/0.4 ML SYG SC SCH (07:21)
[2017-08-15] MEDS: FAMOTIDINE 20 MG TAB PO SCH (09:10)
[2017-08-15] MEDS: metroNIDAZOLE 500 MG TAB PO SCH ×2 (09:10→13:12)
--- NOTE | 2017-08-15 12:25 | PN ---
Date/Time of Note Date/Time of Note DATE: 08/15/17 TIME: 12:24 Assessment/Plan VTE Prophylaxis VTE Prophylaxis Intervention: other Lines/Catheters IV Catheter Type (from Nrs): Peripheral IV Urinary Cath still in place: No Assessment/Plan Chief Complaint/Hosp Course 1. Cervical cancer stage II with pelvic adhesion, uretera stricture and probable endometriosis, status post pelvic and aortic lymph node dissection, extensive enterolysis, left ureteral dissection, repair of left common iliac/hypogastric vein. - clear liquid diet and IV fluids. - Po antibiotic as per protocol. - Tylenol and [place] for pain control. 2. BLE venous doppler stat - Possible iliac vein injury during sx Lovenox for DVT prophylaxis. Problems: Subjective 24 Hr Interval Summary Free Text/Dictation Patient complain of continued pain in abdominal, at area of incision Exam/Review of Systems Vital Signs Vitals Vital Signs Date Time Temp Pulse Resp B/P Pulse Ox O2 Delivery O2 Flow Rate FiO2 08/15/17 07:00 98.2 88 18 104/58 97 08/13/17 15:53 Room Air 08/11/17 12:38 2.0 Intake and Output 08/14/17 08/14/17 08/15/17 15:00 23:00 07:00 Intake Total 530 ml 1050 ml 1650 ml Output Total 900 ml 1200 ml Balance 530 ml 150 ml 450 ml Exam Constitutional: well developed Head: atraumatic, normocephalic Neck: supple Respiratory: clear to auscultation Cardiovascular: regular rate and rhythm Gastrointestinal: soft, tender Extremities: normal pulses Results Result Diagram: 08/15/17 0454 08/15/17 0454 Results 24 hrs Laboratory Tests Test 08/15/17 04:54 White Blood Count 6.7 Red Blood Count 3.71 L Hemoglobin 10.5 L Hematocrit 32.3 L Mean Corpuscular Volume 87.1 Mean Corpuscular Hemoglobin 28.3 L Mean Corpuscular Hemoglobin Concent 32.5 Red Cell Distribution Width 13.7 Platelet Count 222 Mean Platelet Volume 10.6 H Neutrophils % 66.8 Lymphocytes % 18.8 Monocytes % 9.6 Eosinophils % 2.6 Basophils % 0.5 Nucleated Red Blood Cells % 0.0 Neutrophils # 4.5 Lymphocytes # 1.3 Monocytes # 0.6 Eosinophils # 0.2 Basophils # 0.0 Nucleated Red Blood Cells # 0.0 Sodium Level 138 Potassium Level 3.8 Chloride Level 109 Carbon Dioxide Level 26 Anion Gap 7 L Blood Urea Nitrogen 3 L Creatinine 0.60 Glucose Level 95 Calcium Level 8.6 Medications Medications Current Medications Acetaminophen/ Hydrocodone Bitart ([place] (5/325)) 1 tab Q6H PRN PO PAIN LEVEL 6 -10 Last administered on 08/13/17 20:34; Admin Dose 1 TAB; Start 08/11/17 at 12 :00 Diphenhydramine HCl (Benadryl) 25 mg Q6H PRN PO ITCHING; Start 08/11/17 at 12: 00 Enoxaparin Sodium 40 mg 40 mg DAILY@07 SC Last administered on 08/15/17 07:21 ; Admin Dose 40 MG; Start 08/12/17 at 07:00 Potassium Chloride/Lactated Ringer's (KCl/Lr) 1,010 ml @ 80 mls/hr [id number] IV Last administered on 08/14/17 23:53; Admin Dose 80 MLS/HR; Start 08/11/17 at 15 :30 Ondansetron HCl 4 mg 4 mg Q6H PRN IV NAUSEA AND/OR VOMITING Last administered on 08/11/17 16:15; Admin Dose 4 MG; Start 08/11/17 at 16:30 Acetaminophen (Ofirmev 1000mg/ 100ml Iv) 100 ml @ 400 mls/hr Q6H PRN IVPB PAIN LEVEL 1-3; Start 08/11/17 at 18:00 Morphine Sulfate (morphine) 2 mg Q2H PRN IV PAIN LEVEL 7-10 Last administered on 08/14/17 23:51; Admin Dose 2 MG; Start 08/11/17 at 18:00 Famotidine (Pepcid) 20 mg Q12 PO Last administered on 08/15/17 09:10; Admin Dose 20 MG; Start 08/12/17 at 21:00 Simethicone (Mylicon) 80 mg Q8H PRN PO DISTENSION/GAS/BLOATING Last administered on 08/14/17 11:58; Admin Dose 80 MG; Start 08/12/17 at 17:00 Metronidazole (Flagyl) 500 mg TID PO Last administered on 08/15/17 09:10; Admin Dose 500 MG; Start 08/13/17 at 13:00 MADI DEL ROSARIO 16, 2017 12:25
[2017-08-15] MEDS: POTASSIUM CHLORIDE 20 MEQ in LACTATED RINGER'S 1,000 ML IV SCH (13:13)
[2017-08-15 14:00] VITALS: BP 101/56; RESP 18
--- NOTE | 2017-08-15 15:11 | PN ---
Date/Time of Note Date/Time of Note DATE: 08/15/17 TIME: 15:05 Assessment/Plan VTE Prophylaxis VTE Prophylaxis Intervention: LMWH Lines/Catheters IV Catheter Type (from Nrs): Peripheral IV Urinary Cath still in place: No Assessment/Plan Chief Complaint/Hosp Course vaginal cancer Problems: Assessment/Plan A- doing well P- will probably d/c after jing soft diet for dinner and oral aspirin daily Subjective 24 Hr Interval Summary Free Text/Dictation Feels better,OOB more and + flatus Exam/Review of Systems Vital Signs Vitals Vital Signs Date Time Temp Pulse Resp B/P Pulse Ox O2 Delivery O2 Flow Rate FiO2 08/15/17 14:00 98.6 98 18 101/56 97 08/13/17 15:53 Room Air 08/11/17 12:38 2.0 Intake and Output 08/14/17 08/14/17 08/15/17 15:00 23:00 07:00 Intake Total 530 ml 1050 ml 1650 ml Output Total 900 ml 1200 ml Balance 530 ml 150 ml 450 ml Exam Resp- clear CVS- NSR Abd- soft, NT and clean Ext- NT no edema and warm with pulse bilateral Results Result Diagram: 08/15/17 0454 08/15/17 0454 Results 24 hrs Laboratory Tests Test 08/15/17 04:54 White Blood Count 6.7 Red Blood Count 3.71 L Hemoglobin 10.5 L Hematocrit 32.3 L Mean Corpuscular Volume 87.1 Mean Corpuscular Hemoglobin 28.3 L Mean Corpuscular Hemoglobin Concent 32.5 Red Cell Distribution Width 13.7 Platelet Count 222 Mean Platelet Volume 10.6 H Neutrophils % 66.8 Lymphocytes % 18.8 Monocytes % 9.6 Eosinophils % 2.6 Basophils % 0.5 Nucleated Red Blood Cells % 0.0 Neutrophils # 4.5 Lymphocytes # 1.3 Monocytes # 0.6 Eosinophils # 0.2 Basophils # 0.0 Nucleated Red Blood Cells # 0.0 Sodium Level 138 Potassium Level 3.8 Chloride Level 109 Carbon Dioxide Level 26 Anion Gap 7 L Blood Urea Nitrogen 3 L Creatinine 0.60 Glucose Level 95 Calcium Level 8.6 Medications Medications Current Medications Acetaminophen/ Hydrocodone Bitart ([place] (5/325)) 1 tab Q6H PRN PO PAIN LEVEL 6 -10 Last administered on 08/13/17t 20:34; Admin Dose 1 TAB; Start 08/11/17 at 12 :00 Diphenhydramine HCl (Benadryl) 25 mg Q6H PRN PO ITCHING; Start 08/11/17 at 12: 00 Enoxaparin Sodium 40 mg 40 mg DAILY@07 SC Last administered on 08/15/17 07:21 ; Admin Dose 40 MG; Start 08/12/17 at 07:00 Potassium Chloride/Lactated Ringer's (KCl/Lr) 1,010 ml @ 80 mls/hr [id number] IV Last administered on 08/15/17 13:13; Admin Dose 80 MLS/HR; Start 08/11/17 at 15 :30 Ondansetron HCl 4 mg 4 mg Q6H PRN IV NAUSEA AND/OR VOMITING Last administered on 08/11/17 16:15; Admin Dose 4 MG; Start 08/11/17 at 16:30 Acetaminophen (Ofirmev 1000mg/ 100ml Iv) 100 ml @ 400 mls/hr Q6H PRN IVPB PAIN LEVEL 1-3; Start 08/11/17 at 18:00 Morphine Sulfate (morphine) 2 mg Q2H PRN IV PAIN LEVEL 7-10 Last administered on 08/14/17 23:51; Admin Dose 2 MG; Start 08/11/17 at 18:00 Famotidine (Pepcid) 20 mg Q12 PO Last administered on 08/15/17 09:10; Admin Dose 20 MG; Start 08/12/17 at 21:00 Simethicone (Mylicon) 80 mg Q8H PRN PO DISTENSION/GAS/BLOATING Last administered on 08/14/17 11:58; Admin Dose 80 MG; Start 08/12/17 at 17:00 Metronidazole (Flagyl) 500 mg TID PO Last administered on 08/15/17 13:12; Admin Dose 500 MG; Start 08/13/17 at 13:00 DELMA LUNDBERG MD Aug 15, 2017 15:11
[2017-08-15 19:17] VITALS: BP 109/68; RESP 20
--- NOTE | 2017-08-16 15:58 | OPR ---
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 Pelvic and aortic lymph node dissection 2. Left ureteral dissection with repositioning 3. Enterolysis 4. Repair of let common iliac/hypogastric vein Surgeon: Dr. Johns Wool Fleece Grader: Dr. 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 Intraoperative Findings and Summary of Procedure: After placing the Trocars and exploration we noted somewhat limited exposure despite Trendelenberg and regional with general anesthesia with significant adhesions of the adnexia to the sidewalls, especially on the left and the uterus mobile with uterine fibroids, although on EUA the primary was confirmed to be a vaginal primary. The retroperitoneum was opened and a ureteral dissection with repositioning was performed and the LND completed for treatment planning with ovarian preservation bilaterally. On the left side the adnexa was densely adherent to the sidewall and adjacent claudia tissue was densely adherent to the vasculature with the ureter. The common iliac vein had claudia tissue and the ureter densely adherent due to possible endometriosis and a defect was repaired. Subsequently the laparoscopic LND was completed with a finding of grossly negative nodes pathology pending. Findings and Procedure: After being prepped and draped in the usual manner an EEA-sizer and pneumo- occluder were inserted vaginally to define anatomy and assure pneumoperitoneum, after which a 5-millimeter trocar was placed cephlad to the umbilicus without incident and the abdomen was insufflated to 15 mm Hg. Subsequently, we insufflated and placed an additional 5 millimeter trocar cephlad to the umbilicus, two 5 millimeter trocars laterally and a 12 millimeter trocar suprapubically. At this time any pelvic adhesions were lysed with sharp dissection. The uterus noted to have fibroids and was manipulated with a previously sponge stick placed in the vagina and a fan attached to a Sarmad Arm. There was no apparent extra-uterine disease and the cervix appeared to be minimally expanded and the uterus was enlarged and irregular with fibroids and/ or replacement with metastatic disease. Of note the adnexia were densely adherent to the pelvic sidewalls and the broad ligament, especially on the left. The right round ligament was transected with a Gyrus bipolar cutting forceps instrument. The retroperitoneal area was opened and the ureter was identified with difficulty due to scar tissue and inflammation and compromised exposure as the opening was extended parallel to the IP-ligament. Due to peritoneal inflammation and scarring a ureteral dissection with repositioning was undertaken with an endo-dissector and Omni. After confirming hemostasis we addressed the lymph node dissection. Initially visibly enlarged lymph node tissue adjacent to the right pelvic vasculature were removed with sharp and blunt dissection, using the Gyrus bipolar cutting forceps and Omni for hemostasis and lymphostasis. The dissection was continued to include claudia tissue adjacent to the common iliac vessels. The obturator nerve was identified and all adjacent claudia tissue removed with blunt dissection, with the Omni cautery used for lymphostasis and hemostasis as needed. Subsequently the fan retractor and Sarmad Arm were adjusted and the left round ligament was transected with a Gyrus bipolar cutting forceps instrument. The contralateral retroperitoneal area was opened and the ureter was identified after manipulation due to exposure issues as the opening was extended parallel to the IP-ligament. Due to scarring and peritoneal edematous with suggestion of endometriosis a ureteral dissection with repositioning similar to the right side was completed with an Omni and endo-dissector and the ureter and claudia tissue were noted to be densely adherent to the left common iliac vasculature as the hypogastric vasculature entered. The ureter was dissected and mobilized but during removal of the the densely adherent node, the a defect in the common iliac vein as the hypogastric vein entered was inevitable and repaired with interrupted 4-0 Prolene suture laparoscopically. We then thoroughly irrigated and confirmed hemostasis. After irrigating and assuring hemostasis the 12 millimeter trocar fascia was removed and the fascia was closed with 0-vicryl using with endo-close devise. The gas was removed and the skin of all sites then closed with subcuticular 4-0 Monocryl suture. The EBL was 500cc and the patient tolerated the procedure well and left the OR in good condition. Delma Johns M.D. Surgeon see signature line Anesthesia Type: other Estimated Blood Loss: other Transfusion Required: yes Complications: no DELMA JOHNS MD Aug 16, 2017 15:58
== END 2017-08-15 20:31 | disposition home or self-care (01) | DRG 745 ==
LOC: SDS 06:12 → ICU 11:38 → MS1 08-13 07:54
PROC: 0UN90ZZ Release Uterus, Open Approach (ICD-10-PCS; 2017-08-11)
PROC: 07BC0ZZ Excision of Pelvis Lymphatic, Open Approach (ICD-10-PCS; 2017-08-11)
PROC: 0UNC0ZZ Release Cervix, Open Approach (ICD-10-PCS; 2017-08-11)
PROC: 07BD0ZX Excision of Aortic Lymphatic, Open Approach, Diagnostic (ICD-10-PCS; principal; 2017-08-11 07:30)
DX: N73.6 Female pelvic peritoneal adhesions (postinfective) (principal); C55 Malignant neoplasm of uterus, part unspecified; C53.9 Malignant neoplasm of cervix uteri, unspecified
CPT/HCPCS: 36430; 80048; 80053; 85025; 85610; 86850; 86900; 86901; 86920; 87081; 87086; 88307; 93970; J0690; J1170; J1200; J1644; J1650; J2250; J2270; J2274; J2370; J2405; J3010; J3480; J7120; J7999; P9016

== ENCOUNTER 2017-09-14 08:29 | Emergency (ER) | payer BC ==
[~2017-09-14] VITALS: Ht 157.5 cm; Wt 69.0 kg
[2017-09-14 08:34] VITALS: Ht 157.5 cm; Wt 69.0 kg
[2017-09-14] MEDS ORDERED: ONDANSETRON 4 MG INJ IV STA (09:44)
[2017-09-14] MEDS ORDERED: HYDROmorphONE 1 MG/ML SYG IV STA (09:44)
--- NOTE | 2017-09-14 09:55 | ERA ---
ER Documentation Chief Complaint Date/Time DATE: 09/14/17 TIME: 09:53 Chief Complaint ap since yesterday HPI This is a 41-year-old female with a history of external vaginal cancer with the surgery 1 month ago by [employer] with a laparoscopic lymph node resection and endometriosis ablation. The patient is complaining of right upper quadrant pain that radiates to the right back. She says that she has had this for quite some time, even before the surgery was done last month. She states she has had it for a long time and does not recall how long just thought it was something wrong with her kidney because she has had kidney stones before. She says the pain was worse the past day. Some nausea but no vomiting or diarrhea. The pain is described as crampy and intermittent but more constant today. No chest pain or shortness of breath ROS All systems reviewed and are negative except as per history of present illness. Medications Home Meds Active Scripts Omeprazole* (Omeprazole*) 40 Mg Capsule.dr, 40 MG PO DAILY, #30 CAP Prov:DOLORES HOOKS DO 09/14/17 Hydrocodone/Acetaminophen ([place] 5-325 Tablet) 1 Each Tablet, 1 TAB PO Q6H Y for PAIN, #20 TAB Prov:DOLORES HOOKS DO 09/14/17 Dicyclomine Hcl* (Bentyl*) 10 Mg Capsule, 20 MG PO QID, #30 CAP Prov:DOLORES HOOKS DO 09/14/17 Allergies Allergies: Coded Allergies: No Known Allergies (Verified Allergy, Unknown, 09/14/17) PMhx/Soc History of Surgery: Yes (APPENDECTOMY) Anesthesia Reaction: No Hx Neurological Disorder: No Hx Respiratory Disorders: No Hx Cardiac Disorders: No Hx Psychiatric Problems: No Hx Miscellaneous Medical Probl: Yes (S/P APPY) Hx Alcohol Use: No Hx Substance Use: No Hx Tobacco Use: No FmHx Family History: No coronary disease Physical Exam Vitals Vital Signs Date Time Temp Pulse Resp B/P Pulse Ox O2 Delivery O2 Flow Rate FiO2 09/14/17 08:34 98.1 98 18 102/60 99 Physical Exam Const: Well-developed, well-nourished Head: Atraumatic, normocephalic Eyes: Normal Conjunctiva, PERRLA, EOMI, normal sclera, no nystagmus ENT: Normal External Ears, Nose and Mouth, moist mucus membranes. Neck: Full range of motion. No meningismus, no lymphadenopathy. Resp: Clear to auscultation bilaterally, no wheezing, rhonchi, rales Cardio: Regular rate and rhythm, no murmurs, S1 S2 present Abd: Soft, moderate right upper quadrant tenderness non distended. Normal bowel sounds, no guarding or rebound, no pulsitile abdominal masses or bruits Skin: No petechiae or rashes, no ecchymosis , no maculopapular rash Back: No midline or flank tenderness Ext: No cyanosis, or edema, FROM x 4, normal inspection, neurovascularly intact x 4 Neur: Awake and alert, STR 5/5 x 4, sensation intact x 4, no focal findings, cerebellum intact Psych: Normal Mood and Affect Result Diagram: 09/14/17 0955 09/14/17 0955 Results 24 hrs Laboratory Tests Test 09/14/17 09:55 White Blood Count 9.010^3/ul Red Blood Count 4.0310^6/ul Hemoglobin 10.9g/dl Hematocrit 35.4% Mean Corpuscular Volume 87.8fl Mean Corpuscular Hemoglobin 27.0pg Mean Corpuscular Hemoglobin Concent 30.8g/dl Red Cell Distribution Width 14.8% Platelet Count 92606^3/UL Mean Platelet Volume 10.3fl Neutrophils % 74.7% Lymphocytes % 15.9% Monocytes % 7.3% Eosinophils % 1.3% Basophils % 0.4% Nucleated Red Blood Cells % 0.0/100WBC Neutrophils # 6.710^3/ul Lymphocytes # 1.410^3/ul Monocytes # 0.710^3/ul Eosinophils # 0.110^3/ul Basophils # 0.010^3/ul Nucleated Red Blood Cells # 0.010^3/ul Sodium Level 142mmol/L Potassium Level 3.8mmol/L Chloride Level 108mmol/L Carbon Dioxide Level 26mmol/L Anion Gap 12 Blood Urea Nitrogen 6mg/dl Creatinine 0.71mg/dl Glucose Level 91mg/dl Calcium Level 8.9mg/dl Total Bilirubin 0.4mg/dl Direct Bilirubin 0.00mg/dl Indirect Bilirubin 0.4mg/dl Aspartate Amino Transf (AST/SGOT) 18IU/L Alanine Aminotransferase (ALT/SGPT) 28IU/L Alkaline Phosphatase 62IU/L Total Protein 8.0g/dl Albumin 4.1g/dl Globulin 3.90g/dl Albumin/Globulin Ratio 1.05 Lipase 48U/L Current Medications Medications (Trade) Dose Ordered Sig/Param Route PRN Reason Start Time Stop Time Status Last Admin Dose Admin Hydromorphone HCl (Dilaudid) 1 mg ONCE STAT IV 09/14/17 09:44 09/14/17 09:46 DC Ondansetron HCl (Zofran Inj) 4 mg ONCE STAT IV 09/14/17 09:44 09/14/17 09:46 DC IV Flush 10 ml 10 ml STK-MED ONCE .ROUTE 09/14/17 12:27 09/14/17 12:28 DC Sodium Chloride (NS) 0 ml @ ud STK-MED ONCE .ROUTE 09/14/17 12:27 09/14/17 12:28 DC Iohexol (Omnipaque 300mg/ ml) 150 ml STK-MED ONCE .ROUTE 09/14/17 12:27 09/14/17 12:28 DC Procedures/MDM PROCEDURE: CT ABDOMEN AND PELVIS WITHOUT CONTRAST. CLINICAL INDICATION: Right upper quadrant pain. History of vaginal carcinoma with surgery x1 month ago. Laparoscopic lymph node dissection and endometrial ablation. TECHNIQUE: CT scan of the abdomen and pelvis without contrast was performed on a multidetector high-resolution CT scanner. The patient was scanned without intravenous contrast. Coronal and sagittal reformatted images were obtained from the axial source images. Images were reviewed on a high-resolution PACS workstation. The total exam CTDI equals 8.1 mGy and the total exam DLP equals 426.6 mGy-cm. One or more of the following dose reduction techniques were used: Automated exposure control. Adjustment of the mA and/or kV according to patient size. Use of iterative reconstruction technique. COMPARISON: None FINDINGS: CT abdomen: The lung bases are clear. The heart size is within limits. There is no significant pericardial effusion. Hepatic morphology is within normal limits. No gross contour deforming masses. The gallbladder is within normal limits. No evidence of intrahepatic or extrahepatic biliary dilatation. Spleen is within normal limits. Pancreas appears to be mildly enlarged. Both adrenal glands are within normal limits. Both kidneys are in normal anatomic position. No evidence of obstruction or hydronephrosis. No gross renal/ureteric calculi. The visualized GI tract demonstrate normal caliber loops of small and large bowel. Stool and air filled large bowel suggestive of constipation. The appendix is not clearly identified, however no inflammatory changes within the right lower quadrant. The unenhanced aorta is unremarkable. No significant retroperitoneal lymphadenopathy. CT pelvis: The bladder is with normal limits. The uterus is enlarged and there is bulky appearance of the cervix, measuring 7.0 x 4.6 cm with low density appearance and several foci of air. Evaluation is limited without IV contrast. No significant free fluid. There is probable low-density left external iliac lymph node measuring 3.0 cm. The visualized osseous structures, appears to within normal limits. IMPRESSION: 1. THE UTERUS IS ENLARGED. THERE IS BULKY APPEARANCE OF THE CERVIX MEASURES 7.0 X 4.6 CM WITH LOW-DENSITY APPEARANCE. EVALUATION IS LIMITED WITHOUT IV CONTRAST. RECOMMEND FOLLOW-UP CT OR MRI OF THE PELVIS WITH IV CONTRAST. GIVEN CLINICAL HISTORY OF VAGINAL CANCER, CANNOT EXCLUDE UNDERLYING MALIGNANCY. 2. Probable left external iliac lymphadenopathy measuring 3.0 x 1.6 cm 3. Mild prominence of the pancreas, although this can be within normal limits, recommend correlation with amylase and lipase levels to exclude pancreatitis. 4. No evidence of bowel obstruction. RPTAT: AAPP Physician Brent Date Time Electronically viewed and signed by Physician Brent on 09/14/2017 13:02 [place]/ CC: DOLORES HOOKS DO PROCEDURE: US right upper quadrant abdomen. CLINICAL INDICATION: Abdominal pain TECHNIQUE: Multiple real-time images were acquired of the patient's right upper quadrant abdomen utilizing a high resolution transducer. COMPARISON: None FINDINGS: The liver demonstrates normal echogenicity and normal size without focal lesions. Patent portal vein. Normal gallbladder without gallstones, pericholecystic fluid or gallbladder wall thickening. Negative sonographic Huston's sign. No intrahepatic or extrahepatic biliary dilatation. The common bile duct measures 3.6 mm in maximal dimension. The visualized portions of the pancreas are normal. The right kidney is normal size with normal echogenicity and morphology. The right kidney measures 11.1 cm. Trace right hydronephrosis. There are no areas of increased echogenicity to suggest nephrolithiasis. Normal caliber aorta and IVC. No peritoneal free fluid. IMPRESSION: Trace right hydronephrosis. No right renal calculi. Otherwise normal upper quadrant ultrasound. RPTAT:AAJJ Aurora Tinajero Physician Date Time Electronically viewed and signed by Aurora Tinajero Physician on 09/14/2017 10 :33 MH/ CC: DOLORES HOOKS DO This a 41-year-old female with a history of vaginal cancer who is visiting with right upper quadrant pain in the gallbladder looks normal on sonogram as is the liver. CAT scan did not show any pathology. There is some cervical changes but the patient is not sure if she has cervical cancer or vaginal cancer. The patient says she is slated to get chemo and radiation. I gave her a copy of her CAT scan report and she will get a CD copy as well and go to her oncologist to follow-up. Her complaints are likely gallbladder oriented or possibly gastric in nature. We will provide her with some acid chandana and gallbladder relaxer Departure Diagnosis: Primary Impression: Abdominal pain Qualified Code: R10.11 - Right upper quadrant abdominal pain Condition: Stable DOLORES HOOKS DO Sep 14, 2017 09:55
[2017-09-14 10:32] LABS: BASOPHILS % 0.4 % (0.0-2.0); EOSINOPHILS # 0.1 10^3/ul (0.0-0.5); EOSINOPHILS % 1.3 % (0.0-7.0); HEMATOCRIT 35.4 % (37.0-47.0); HEMOGLOBIN 10.9 g/dl (12.0-16.0); LYMPHOCYTES # 1.4 10^3/ul (0.8-2.9); LYMPHOCYTES % 15.9 % (15.0-51.0); MEAN CORPUSCULAR HGB CONC 30.8 g/dl (32.0-37.0); MEAN CORPUSCULAR VOLUME 87.8 fl (82.0-101.0); MEAN PLATELET VOLUME 10.3 fl (7.4-10.4); MONOCYTE # 0.7 10^3/ul (0.3-0.9); MONOCYTES % 7.3 % (0.0-11.0); NEUTROPHIL # 6.7 10^3/ul (1.6-7.5); NEUTROPHILS % 74.7 % (39.0-77.0); PLATELET COUNT 248 10^3/UL (140-415); RED BLOOD COUNT 4.03 10^6/ul (4.20-5.40); RED CELL DISTRIBUTION WIDTH 14.8 % (11.5-14.5)
--- NOTE | 2017-09-14 10:33 | RADRPT ---
PROCEDURE: US right upper quadrant abdomen. CLINICAL INDICATION: Abdominal pain TECHNIQUE: Multiple real-time images were acquired of the patient's right upper quadrant abdomen utilizing a high resolution transducer. COMPARISON: None FINDINGS: The liver demonstrates normal echogenicity and normal size without focal lesions. Patent portal vein . Normal gallbladder without gallstones, pericholecystic fluid or gallbladder wall thickening. Negat howard sonographic Huston's sign. No intrahepatic or extrahepatic biliary dilatation. The common bile duct measures 3.6 mm in maximal dimension. The visualized portions of the pancreas are normal. The right kidney is normal size with normal echogenicity and morphology. The right kidney measures 11. 1 cm. Trace right hydronephrosis. There are no areas of increased echogenicity to suggest nephroli thiasis. Normal caliber aorta and IVC. No peritoneal free fluid. IMPRESSION: Trace right hydronephrosis. No right renal calculi. Otherwise normal upper quadrant ultrasound. RPTAT:AAJJ Physician Tereso Date Time Electronically viewed and signed by Physician Tereso on 09/14/2017 10:33 /
[2017-09-14 10:43] LABS: ALBUMIN 4.1 g/dl (3.3-4.9); ALBUMIN/GLOBULIN RATIO 1.05; BILIRUBIN,INDIRECT 0.4 mg/dl (0-1.1); BILIRUBIN,TOTAL 0.4 mg/dl (0.2-1.3); CALCIUM 8.9 mg/dl (8.4-10.2); CREATININE 0.71 mg/dl (0.44-1.00); POTASSIUM 3.8 mmol/L (3.5-5.1)
[2017-09-14] MEDS ORDERED: IOHEXOL 300MG/ML 150 ML BTL ONE (12:27)
[2017-09-14] MEDS ORDERED: SOD CHLORIDE 0.9% 0 ML ONE (12:27)
--- NOTE | 2017-09-14 13:03 | RADRPT ---
PROCEDURE: CT ABDOMEN AND PELVIS WITHOUT CONTRAST. CLINICAL INDICATION: Right upper quadrant pain. History of vaginal carcinoma with surgery x1 month ago. Laparoscopic lymph node dissection and endometrial ablation. TECHNIQUE: CT scan of the abdomen and pelvis without contrast was performed on a multidetector hig h-resolution CT scanner. The patient was scanned without intravenous contrast. Coronal and sagittal reformatted images were obtained from the axial source images. Images were reviewed on a high-resol [employer] PACS workstation. The total exam CTDI equals 8.1 mGy and the total exam DLP equals 426.6 mGy-c m. One or more of the following dose reduction techniques were used: Automated exposure control. Adjustment of the mA and/or kV according to patient size. Use of iterative reconstruction technique. COMPARISON: None FINDINGS: CT abdomen: The lung bases are clear. The heart size is within limits. There is no significant pericardial effus ion. Hepatic morphology is within normal limits. No gross contour deforming masses. The gallbladder is wi thin normal limits. No evidence of intrahepatic or extrahepatic biliary dilatation. Spleen is within normal limits. Pancreas appears to be mildly enlarged. Both adrenal glands are within normal limits. Both kidneys are in normal anatomic position. No evidence of obstruction or hydronephrosis. No gross renal/ureteric calculi. The visualized GI tract demonstrate normal caliber loops of small and large bowel. Stool and air alice led large bowel suggestive of constipation. The appendix is not clearly identified, however no infla mmatory changes within the right lower quadrant. The unenhanced aorta is unremarkable. No significant retroperitoneal lymphadenopathy. CT pelvis: The bladder is with normal limits. The uterus is enlarged and there is bulky appearance of the cervi x, measuring 7.0 x 4.6 cm with low density appearance and several foci of air. Evaluation is limited without IV contrast. No significant free fluid. There is probable low-density left external iliac l ymph node measuring 3.0 cm. The visualized osseous structures, appears to within normal limits. IMPRESSION: 1. THE UTERUS IS ENLARGED. THERE IS BULKY APPEARANCE OF THE CERVIX MEASURES 7.0 X 4.6 CM WITH LOW-DE NSITY APPEARANCE. EVALUATION IS LIMITED WITHOUT IV CONTRAST. RECOMMEND FOLLOW-UP CT OR MRI OF THE PE LVIS WITH IV CONTRAST. GIVEN CLINICAL HISTORY OF VAGINAL CANCER, CANNOT EXCLUDE UNDERLYING MALIGNANC Y. 2. Probable left external iliac lymphadenopathy measuring 3.0 x 1.6 cm 3. Mild prominence of the pancreas, although this can be within normal limits, recommend correlation with amylase and lipase levels to exclude pancreatitis. 4. No evidence of bowel obstruction. RPTAT: AAPP Physician Brent Date Time Electronically viewed and signed by Mayo Tapia Physician on 09/14/2017 13:02 [place]/
[2017-09-14] MEDS ORDERED: OMEP40CA6 PO (13:32)
[2017-09-14] MEDS ORDERED: DICY10CA60 PO (13:32)
[2017-09-14] MEDS ORDERED: HYDR-906 PO (13:32)
[2017-09-14 13:51] VITALS: BP 128/85; PULSE 74; RESP 18
== END 2017-09-14 13:58 | disposition home or self-care (01) ==
LOC: E/R 08:29
DX: R10.11 Right upper quadrant pain (principal); R40.2252 Coma scale, best verbal response, oriented, at arrival to emergency department; R40.2142 Coma scale, eyes open, spontaneous, at arrival to emergency department; R40.2362 Coma scale, best motor response, obeys commands, at arrival to emergency department; Z85.44 Personal history of malignant neoplasm of other female genital organs
CPT/HCPCS: 36415; 74176; 76705; 80053; 83690; 85025; Z7502; J1170; J2405; Q9967

== ENCOUNTER 2018-05-17 09:48 | Emergency (ER) | END 2018-05-17 13:33 | disposition home or self-care (01) ==

== ENCOUNTER 2018-07-01 13:47 | Day surgery (SDC) | END 2018-07-05 10:15 | disposition home or self-care (01) ==

== ENCOUNTER 2019-03-02 10:43 | Day surgery (SDC) | payer BC ==
[2019-03-02] VITALS (22 sets, daily range): BP systolic 83–117; BP diastolic 40–77; PULSE 0–94; RESP 15–20; Ht 157.5 cm; Wt 61.0 kg
[~2019-03-02] VITALS: Ht 157.5 cm; Wt 61.0 kg
[~2019-03-02 10:43] MED LIST changes: +CEFAZOLIN 1 GM INJ ONE; +CEFAZOLIN 2 GM/50 ML (PMX) 50 ML IVPB ONE; -CEFAZOLIN 2 GM/50 ML (PMX) 50 ML IVPB SCH; +CIPR500T4 PO; -D5-NS + KCL 20 MEQ 1,000 ML IV SCH; +DICY10CA40 PO; +HYDR-4011 PO; +IBUP-1542 PO; +METR500T PO; -Metronidazole 500 MG in NS 100 ML IVPB SCH; +OMEP40CA6 PO
--- NOTE | 2019-03-02 11:45 | HPN ---
Date/Time of Note Date/Time of Note DATE: 03/02/19 TIME: 11:45 Interval H&P Admission Note Pt. seen H&P reviewed: No system changes TAMMIE DEE MD Mar 02, 2019 11:45
[2019-03-02] MEDS ORDERED: CALC1TAB79 PO (11:52)
[2019-03-02] MEDS ORDERED: ERGO2000 PO (11:52)
--- NOTE | 2019-03-02 12:39 | PREAC ---
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 not on B-Jaya Reported Medications Calcium Carbonate/Vitamin D3 ([place] 500+D Tablet) 1 Each Tablet, 1 EACH PO DAILY, TAB 03/02/19 Ergocalciferol (Vitamin D2) (VITAMIN D2) 2,000 Unit Tablet, 2000 UNIT PO DAILY, TAB 03/02/19 Discontinued Scripts Ciprofloxacin Hcl* (Ciprofloxacin Hcl*) 500 Mg Tablet, 500 MG PO BID for 7 Days, TAB Prov:MICHELLE REED. BAKED AND GRAPHITE INSPECTOR 05/17/18 Metronidazole* (Flagyl*) 500 Mg Tablet, 500 MG PO TID for 7 Days, TAB Prov:MICHELLE REED. BAKED AND GRAPHITE INSPECTOR 05/17/18 Ibuprofen* (Motrin*) 600 Mg Tab, 600 MG PO Q6H PRN for PAIN AND OR ELEVATED TEMP, #30 TAB Prov:MICHELLE REED. BAKED AND GRAPHITE INSPECTOR 05/17/18 Omeprazole* (Omeprazole*) 40 Mg Capsule.dr, 40 MG PO DAILY, #30 CAP Prov:SIMRAN HOOKSSTCHRISTINES Raquel DO 09/14/17 Hydrocodone/Acetaminophen ([place] 5-325 Tablet) 1 Each Tablet, 1 TAB PO Q6H PRN for PAIN, #20 TAB Prov:SIMRAN HOOKSSTCHRISTINES AJeanne DO 09/14/17 Dicyclomine HCl (Dicyclomine HCl) 10 Mg Capsule, 20 MG PO QID, #30 CAP Prov:EDWINAOSSIMRANSTOLOS A. DO 09/14/17 Meds reviewed: Yes Allergies Coded Allergies: No Known Allergies (Verified Allergy, Unknown, 03/02/19) Allergies Reviewed: Yes Labs/Studies Labs Reviewed: Reviewed by anesthesiologist test: Negative Studies: ECG (n/a), CXR (n/a) Pre-procedure Exam Last vitals Vital Signs Date Temp Pulse Resp B/P (MAP) Pulse Ox O2 O2 Flow FiO2 Time Delivery Rate 03/02/19 98.6 89 18 96/54 (68) 100 Room Air 12:08 Airway: Adequate mouth opening, Adequate thyromental dist Mallampati: Mallampati II Teeth: Normal Lung: Normal Heart: Normal ASA Physical Status ASA physical status: 3 Emergency: None Planned Anesthetic General/MAC: LMA Planned Pain Management Parenteral pain med Pre-operative Attestations Prior to commencing anesthesia and surgery, the patient was re-evaluated, there was verification of: *The patient's identity *The results of appropriate recent lab work and preoperative vital signs *The above evaluation not changing prior to induction *Anesthetic plan, risk benefits, alternative and complications discussed with patient/family; questions answered; patient/family understands, accepts and wishes to proceed. VIKASH BRANDON MD Mar 02, 2019 12:39
[2019-03-02] MEDS ORDERED: FENTAnyl 50 MCG/ML VIAL ONE (12:42)
[2019-03-02] MEDS ORDERED: PROPOFOL 20 ML ONE (12:42)
[2019-03-02] MEDS ORDERED: ROCURONIUM 50 MG INJ ONE (12:42)
[2019-03-02] MEDS ORDERED: MIDAZOLAM 1 MG/ML 2 ML INJ ONE ×2 (12:42→13:49)
[2019-03-02] MEDS ORDERED: INDIGOTINDISULFONATE 0.8% 5 ML INJ ONE (13:04)
[2019-03-02] MEDS ORDERED: METOCLOPRAMIDE 10 MG INJ ONE (13:10)
[2019-03-02] MEDS ORDERED: DEXAMETHASONE 4 MG/ML 5 ML INJ ONE (13:10)
[2019-03-02] MEDS ORDERED: KETOROLAC 30 MG INJ ONE (13:10)
[2019-03-02] MEDS ORDERED: ONDANSETRON 4 MG INJ ONE (13:10)
[2019-03-02] MEDS ORDERED: SUGAMMADEX SODIUM 200 MG/2 ML VIAL IV ONE (13:34)
--- NOTE | 2019-03-02 13:50 | PAC ---
Date/Time of Note Date/Time of Note DATE: 03/02/19 TIME: 13:50 Post-Anesthesia Notes Post-Anesthesia Note Last documented vital signs Vital Signs Date Temp Pulse Resp B/P (MAP) Pulse Ox O2 O2 Flow FiO2 Time Delivery Rate 03/02/19 98.6 89 18 96/54 (68) 100 Room Air 13:48 Activity: WNL Respiratory function: WNL Cardiovascular function: WNL Mental status: Baseline Pain reasonably controlled: Yes Hydration appropriate: Yes Nausea/Vomiting absent: Yes VIKASH BRANDON MD Mar 02, 2019 13:50
[2019-03-02] MEDS ORDERED: DIPHENHYDRAMINE 50 MG INJ ONE (13:52)
[2019-03-02] MEDS ORDERED: HYDROmorphONE 1 MG/5 ML IV SYRINGE IV ONE (13:53)
[2019-03-02] MEDS ORDERED: NALOXONE (0.4 MG/ML) INJ ONE (13:54)
--- NOTE | 2019-03-02 13:59 | OPR ---
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 Procedure Description The patient was brought to the operating room and given general anesthesia then positioned in the lithotomy position. Timeout was done and the patient was id entified by her name, birthdate and the procedure. The patient received 2 g of Ancef IV at the start of the procedure. The genital area was then prepped and draped in the usual sterile manner. The urethral meatus was tight and I had to dilated with the Hegar dilators then I was able to insert the 22 [place] cystoscope sheath into the bladder and inspected the bladder thoroughly. Many red areas were noted around the base of the bladder as well as on the right side of the bladder and also to the left side of the midline. The patient was given 5 mL of indigo carmine to better visualize and protect the ureteral orifices. Both orifices were identified then I removed the cystoscope and inserted the 26 [place] bipolar resectoscope and resected the erythematous and red areas from the bladder base the right lateral wall of the bladder and to the left side of the bladder proximal to the ureteral orifice. The left ureteral orifice was visualized and medial to it there was a little bulge and I did take a piece of that area and send it with the rest of the specimen. All the bleeders and the edges and the base of the resected areas were fulgurated and good hemostasis was obtained and I did also electrocoagulate any red area. The ureteral orifices were intact. At the end of the procedure I removed the resectoscope and inserted a 24 [place] 30 cc balloon three-way Diaz catheter. She needed the size catheter to tamponade against the urethra as she was bleeding from the ureter after she was dilated. The patient tolerated the procedure well and was transferred to the recovery room in a stable and satisfactory condition. TAMMIE DEE MD Mar 02, 2019 13:59
[2019-03-02] MEDS ORDERED: ONDANSETRON 4 MG INJ IV PRN (14:00)
[2019-03-02] MEDS ORDERED: FENTAnyl 50 MCG/ML VIAL IV PRN ×3 (14:00)
[2019-03-02] MEDS ORDERED: EPHEDrine SULFATE 50 MG/5 ML SYG IV PRN (14:00)
[2019-03-02] MEDS ORDERED: MEPERIDINE 25 MG INJ IV PRN (14:00)
[2019-03-02] MEDS ORDERED: OXYCODONE/ACETAMINOPHEN (5/325) TAB PO PRN (14:00)
[2019-03-02] MEDS ORDERED: HYDROCODONE/APAP (5/325) TAB PO PRN (14:00)
[2019-03-02] MEDS ORDERED: METOCLOPRAMIDE 10 MG INJ IV PRN (14:00)
[2019-03-02] MEDS ORDERED: LABETALOL HCL 20MG INJ IV PRN (14:00)
[2019-03-02] MEDS ORDERED: MIDAZOLAM 1 MG/ML 2 ML INJ IV PRN (14:00)
[2019-03-02] MEDS ORDERED: HYDROmorphONE 1 MG/5 ML IV SYRINGE IV PRN ×3 (14:00)
[2019-03-02] MEDS: DIPHENHYDRAMINE 50 MG INJ IV PRN ×2 (14:40→14:41)
== END 2019-03-02 16:22 | disposition home or self-care (01) ==
LOC: SDS 10:43
PROVIDERS: ATTEND Urology
DX: N30.80 Other cystitis without hematuria (principal); Z85.89 Personal history of malignant neoplasm of other organs and systems
CPT/HCPCS: 52234; 88305; J0690; J1100; J1170; J1200; J1885; J2250; J2310; J2405; J2765; J3010; Z7512; Z7610

== ENCOUNTER 2019-08-27 00:07 | Emergency (ER) | payer BC ==
[~2019-08-27] VITALS: Ht 160 cm; Wt 65.0 kg
[~2019-08-27 00:07] MED LIST changes: +ACET325T33 PO; -CEFAZOLIN 1 GM INJ ONE; -CEFAZOLIN 2 GM/50 ML (PMX) 50 ML IVPB ONE; +CEPH-443 PO; -CIPR500T4 PO; -DICY10CA40 PO; +DOCU-144 PO; -IBUP-1542 PO; -METR500T PO; +NALO4SPR NS; -OMEP40CA6 PO; +ONDA4TAB14 PO; +OXYC5CAP17 PO
[2019-08-27 00:24] VITALS: Ht 160 cm; Wt 65.0 kg
[2019-08-27] MEDS ORDERED: morphine 4 MG/ML VIAL IV STA ×2 (00:31→04:27)
[2019-08-27] MEDS ORDERED: SOD CHLORIDE 0.9% 1,000 ML IV STA (00:31)
[2019-08-27] MEDS ORDERED: ONDANSETRON 4 MG INJ IV STA (00:31)
[2019-08-27] MEDS ORDERED: IOHEXOL 300MG/ML 150 ML BTL ONE (01:47)
[2019-08-27] MEDS ORDERED: SOD CHLORIDE 0.9% 100 ML ONE (01:47)
[2019-08-27] MEDS ORDERED: ONDANSETRON 4 MG INJ IV ONE (02:05)
[2019-08-27] MEDS ORDERED: morphine 4 MG/ML VIAL IV ONE (02:48)
[2019-08-27 05:11] VITALS: BP 102/70; PULSE 74; RESP 18
== END 2019-08-27 05:11 | disposition home or self-care (01) ==
LOC: E/R 00:07
DX: R10.9 Unspecified abdominal pain (principal); Z85.53 Personal history of malignant neoplasm of renal pelvis
CPT/HCPCS: 36415; 74177; 80053; 81001; 84703; 85025; 96374; 96375; 96376; J2270; J2405; J7030; Q9967; Z7502; Z7610